=== PATIENT | female | born 1935 | race Caucasian/White ===

== ENCOUNTER 2016-08-02 09:27 | Outpatient (RCR) | payer MEDICARE, OTHER ==
--- OUTSIDE RECORDS SUMMARY | 2016-06-27 14:22 | XMS REPORT | Continuity of Care Document ---
Author Author [facility] Organization [facility] Address Unknown Phone Unavailable Care Team Providers Care Wood Block Artist Name Role Phone Maria Teresa Aguirre PCP [phone] Source Comments Some departments are not documenting in the electronic medical record. If you do not see the information that you expected, contact Release of Information in the Health Information Management department at [phone] for further assistance in locating additional records.[facility] Active Allergies and Adverse Reactions Not on File Current Medications Not on file Active Problems Not on file Immunizations Name Dates Previously Given Next Due FLU VACCINE >3YO 08/25/2008 (Preservative Free) Social History Tobacco Use Types Packs/Day Years Used Date Never Assessed Plan of Care Health Maintenance Due Date Last Done Comments Physical (Comprehensive) 1942 Exam Pertussis Vaccine 1948 Tetanus Vaccine 1954 Breast Cancer Screening 1977 Shingles Vaccine 1997 Osteoporosis Screening 2002 Prevnar/Pneumovax (#1) 2002 Influenza Vaccine 05/24/2015 08/25/2008 Results from Last 3 Months Not on file
[2016-06-27 14:35] LABS: BASOPHILS % (AUTO) 0 % (0-10); EOSINOPHILS % (AUTO) 1 % (0-10); LYMPHOCYTES # (AUTO) 0.7 X 10^3 (1.0-4.0); LYMPHOCYTES % (AUTO) 13 % (12-44); MEAN CORPUSCULAR HEMOGLOBIN 33 PG (25-34); MEAN CORPUSCULAR HGB CONC 34 G/DL (32-36); MEAN CORPUSCULAR VOLUME 98 FL (80-99); MEAN PLATELET VOLUME 9.5 FL (7.4-10.4); MONOCYTES # (AUTO) 0.5 X 10^3 (0.0-1.0); MONOCYTES % (AUTO) 8 % (0-12); NEUTROPHILS # (AUTO) 4.5 X 10^3 (1.8-7.8); NEUTROPHILS % (AUTO) 79 % (42-75); PLATELET COUNT 273 10^3/uL (130-400); RED BLOOD COUNT 3.71 10^6/uL (4.35-5.85); RED CELL DISTRIBUTION WIDTH 15.5 % (10.0-14.5); WHITE BLOOD COUNT 5.7 10^3/uL (4.3-11.0)
[2016-06-27 15:58] LABS: ALBUMIN 3.4 G/DL (3.2-4.5); BILIRUBIN,TOTAL 1.7 MG/DL (0.1-1.0); CALCIUM 8.3 MG/DL (8.5-10.1); CREATININE SERUM 1.58 MG/DL (0.60-1.30); MAGNESIUM 1.8 MG/DL (1.8-2.4); POTASSIUM 3.3 MMOL/L (3.6-5.0); TOTAL PROTEIN 5.2 G/DL (6.4-8.2)
[2016-07-19 11:51] LABS: BASOPHILS % (AUTO) 0 % (0-10); EOSINOPHILS % (AUTO) 1 % (0-10); LYMPHOCYTES % (AUTO) 13 % (12-44); MEAN CORPUSCULAR HEMOGLOBIN 33 PG (25-34); MEAN CORPUSCULAR HGB CONC 34 G/DL (32-36); MEAN CORPUSCULAR VOLUME 98 FL (80-99); MEAN PLATELET VOLUME 9.1 FL (7.4-10.4); MONOCYTES # (AUTO) 0.6 X 10^3 (0.0-1.0); MONOCYTES % (AUTO) 9 % (0-12); NEUTROPHILS # (AUTO) 5.8 X 10^3 (1.8-7.8); NEUTROPHILS % (AUTO) 78 % (42-75); PLATELET COUNT 438 10^3/uL (130-400); RED BLOOD COUNT 3.65 10^6/uL (4.35-5.85); RED CELL DISTRIBUTION WIDTH 14.9 % (10.0-14.5); WHITE BLOOD COUNT 7.5 10^3/uL (4.3-11.0)
[2016-07-19 12:51] LABS: ALBUMIN 3.2 G/DL (3.2-4.5); BILIRUBIN,TOTAL 1.7 MG/DL (0.1-1.0); CALCIUM 7.4 MG/DL (8.5-10.1); CREATININE SERUM 1.41 MG/DL (0.60-1.30); POTASSIUM 3.3 MMOL/L (3.6-5.0); TOTAL PROTEIN 5.2 G/DL (6.4-8.2)
[2016-07-25 06:55] LABS: BCR ABL GENE QT SEE FOOTNOTE
[~2016-08-02 09:27] MED LIST: AGM875T PO; ALEN70TA47 PO; ASP325TEC PO; ASP81CT; ASP81CT PO; ASP81TEC PO; ATOR40TA70 PO; ATR20T; ATR20T PO; AZIT250T81 PO; BONIVA 150MG PO; CA C1TAB26 PO; CHOL100011 PO; CLD600T PO; CLOP75TA; CLPD75T; CPM4T; D3; D50KC; DASA100T PO; DASA70TA PO; DENO60DI SQ; DILT120T11 PO; DLT120CCR PO; DRON400T2 PO; FISH1CAP15 PO; FLUTICASONE; GLEEVAC; HYDROXYUREA 500 MG; IMAT400T2 PO; LEVO150T6 PO; LEVO500T69 PO; LVT.088T PO; LVT.112T PO; LVT.1T PO; MULT-974 PO; MULT1TAB63 PO; NF-ESOM40C PO; NITR0.4T12 SL; OMEG1CAP51 PO; ONDA-42 SL; PARO20TA4 PO; PNT40TEC PO; POLY1DRO2 OU; POTA10CA43 PO; POTASSIUM 10 MEQ PO; PRCD5U PO; PRX10T PO; RIVA15TA PO; SIMV40TA2; SIMV80TA3 PO; THYROID; [UNRECOGNIZED DRUG - OTHER]; [UNRECOGNIZED DRUG - OTHER]; [UNRECOGNIZED DRUG - OTHER]; [UNRECOGNIZED DRUG - OTHER]; [UNRECOGNIZED DRUG - OTHER]; [UNRECOGNIZED DRUG - OTHER] PO; [UNRECOGNIZED DRUG - OTHER] PO
[2016-08-02 11:17] LABS: BASOPHILS % (AUTO) 0 % (0-10); EOSINOPHILS % (AUTO) 0 % (0-10); LYMPHOCYTES # (AUTO) 0.6 X 10^3 (1.0-4.0); LYMPHOCYTES % (AUTO) 6 % (12-44); MEAN CORPUSCULAR HEMOGLOBIN 33 PG (25-34); MEAN CORPUSCULAR HGB CONC 34 G/DL (32-36); MEAN CORPUSCULAR VOLUME 96 FL (80-99); MEAN PLATELET VOLUME 9.2 FL (7.4-10.4); MONOCYTES # (AUTO) 0.5 X 10^3 (0.0-1.0); MONOCYTES % (AUTO) 6 % (0-12); NEUTROPHILS # (AUTO) 8.1 X 10^3 (1.8-7.8); NEUTROPHILS % (AUTO) 88 % (42-75); PLATELET COUNT 415 10^3/uL (130-400); RED BLOOD COUNT 3.75 10^6/uL (4.35-5.85); RED CELL DISTRIBUTION WIDTH 14.6 % (10.0-14.5); WHITE BLOOD COUNT 9.2 10^3/uL (4.3-11.0)
[2016-08-02] MEDS ORDERED: FLU TRIvalent (5 YOA+) 2016-17 (CANCER CTR) 0.5 ML IM ONE (11:30)
[2016-08-02 11:52] LABS: ALBUMIN 3.2 G/DL (3.2-4.5); CALCIUM 8.4 MG/DL (8.5-10.1); CREATININE SERUM 1.42 MG/DL (0.60-1.30); POTASSIUM 2.8 MMOL/L (3.6-5.0); TOTAL PROTEIN 5.1 G/DL (6.4-8.2)
[2016-08-02 12:17] LABS: THYROID STIMULATING HORMONE 0.14 UIU/ML (0.35-4.94)
[2016-08-02 13:16] LABS: %SAT TOTAL IRON BINDING CAPIC 33 % (15-50); TIBC 209 ug/dL (280-380)
[2016-08-03 06:54] LABS: UIBC 140 ug/dL (55-450)
[2016-08-03 06:55] LABS: FERRITIN 662 ng/mL (15-150)
[2016-08-27] MEDS ORDERED: FLUT16SP22 NSEACH (14:00)
[2016-08-27] MEDS ORDERED: PARO20TA5 PO (14:00)
[2016-08-27] MEDS ORDERED: MIRT15TA6 PO (14:00)
[2016-08-27] MEDS ORDERED: LEVO100T7 PO (14:00)
[2016-08-27] MEDS ORDERED: CALC600T12 PO (14:00)
[2016-08-27] MEDS ORDERED: POTA20TA15 PO (14:00)
[2016-08-27] MEDS ORDERED: METO5TAB2 PO (14:00)
[2016-08-27] MEDS ORDERED: IMAT100T8 PO ×2 (14:00)
[2016-08-27] MEDS ORDERED: PANT40TA3 PO (14:00)
[2016-09-06] MEDS ORDERED: MIRT15TA8 PO (09:00)
[2016-09-06] MEDS ORDERED: SIME80TA16 PO (09:00)
[2016-09-06] MEDS ORDERED: ACID1TAB PO (09:00)
[2016-09-06] MEDS ORDERED: SENN-20 PO (09:00)
[2016-09-06] MEDS ORDERED: MAGN400T6 PO (09:00)
== END 2016-09-25 | disposition home or self-care (01) ==
LOC: ONC 09:27
PROVIDERS: ATTEND Internal Medicine Hematology & Oncology
DX: C92.10 Chronic myeloid leukemia, BCR/ABL-positive, not having achieved remission (principal); D47.3 Essential (hemorrhagic) thrombocythemia; D64.9 Anemia, unspecified; M81.0 Age-related osteoporosis without current pathological fracture; R19.7 Diarrhea, unspecified; R10.12 Left upper quadrant pain; R74.8 Abnormal levels of other serum enzymes; Z79.899 Other long term (current) drug therapy; Z23 Encounter for immunization
CPT/HCPCS: 36415; 80053; 81206; 82728; 83540; 83615; 83735; 84443; 85025; 87493; 90471; 99213

== ENCOUNTER 2016-11-01 10:59 | Outpatient (RCR) | payer MEDICARE, OTHER ==
[~2016-11-01 10:59] MED LIST changes: +ACID1TAB PO; +CALC600T12 PO; +FLUT16SP22 NSEACH; +IMAT100T8 PO; +LEVO100T7 PO; +MAGN400T6 PO; +METO5TAB2 PO; +MIRT15TA6 PO; +MIRT15TA8 PO; +PANT40TA3 PO; +PARO20TA5 PO; +POTA20TA15 PO; +SENN-20 PO; +SIME80TA16 PO
--- OUTSIDE RECORDS SUMMARY | 2016-11-01 11:02 | XMS REPORT | Continuity of Care Document ---
Author Author [facility] Organization [facility] Address Unknown Phone Unavailable Care Team Providers Care Rare/Endangered Species Specialist Name Role Phone Maria Teresa Aguirre PCP [phone] Source Comments Some departments are not documenting in the electronic medical record. If you do not see the information that you expected, contact Release of Information in the Health Information Management department at [phone] for further assistance in locating additional records.[facility] Active Allergies and Adverse Reactions Not on [...]
== END 2017-01-30 | disposition home or self-care (01) ==
LOC: ONC 10:59
PROVIDERS: ATTEND Internal Medicine Hematology & Oncology
DX: C92.10 Chronic myeloid leukemia, BCR/ABL-positive, not having achieved remission (principal); D47.3 Essential (hemorrhagic) thrombocythemia; M81.0 Age-related osteoporosis without current pathological fracture; Z79.899 Other long term (current) drug therapy; Z23 Encounter for immunization
CPT/HCPCS: 99213